=== PATIENT | female | born 2000 | race Two or more races ===

== ENCOUNTER 2023-09-06 00:27 | Emergency (ER) | payer OTHER ==
[~2023-09-06] VITALS: Ht 154.9 cm; Wt 72.6 kg
[2023-09-06 03:16] LABS: HEMATOCRIT 41.4 % (36.0-45.00); HEMOGLOBIN 14.1 g/dL (12.0-15.00); MEAN CELL VOLUME 80.8 fL (80.00-100.00); MEAN CORPUSCULAR HEMOGLOBIN 27.5 pg (27.00-32.0); MEAN CORPUSCULAR HGB CONC 34.1 g/dl (32.0-36.0); PLATELET COUNT 243 K/uL (150-450); RED BLOOD COUNT 5.13 M/uL (4.00-6.00); RED CELL DISTRIBUTION WIDTH 14.8 % (11.5-14.5)
[2023-09-06 03:34] LABS: URINE APPEARANCE Clear; URINE BILIRRUBIN Negative (NEGATIVE); URINE BLOOD Negative; URINE COLOR Yellow; URINE GLUCOSE Negative (NEGATIVE); URINE LEUKOCYTE Trace; URINE NITRATE Negative; URINE PROTEIN Negative (NEGATIVE); URINE UROBILINOGEN 0.2 E.U./dl
[2023-09-06 03:38] LABS: URINE BACTERIA 384.2 uL (0.0-1933); URINE EPITHELIAL CELLS 29.6 uL (0.0-38.8); URINE RBC 3.4 uL (0.0-20.8); URINE WBC 26.4 uL (0.0-23.2)
[2023-09-06 03:49] LABS: CALCIUM 8.8 mg/dL (8.5-10.1); CREATININE SERUM 0.78 mg/dL (0.55-1.02); GFR 92.35; POTASSIUM 4.02 mEq/L (3.5-5.1)
[2023-09-06] MEDS ORDERED: ONDANSETRON ODT4 MG PO (07:36)
[2023-09-06] MEDS ORDERED: PEPCID40 MG PO (07:36)
[2023-09-06] MEDS ORDERED: INTESTINEX680 M2 PO (07:36)
[2023-09-06] MEDS ORDERED: LEVSIN/SL0.125 MG SL (07:36)
== END 2023-09-06 08:09 ==
LOC: ER 00:28
PROVIDERS: General Practice
DX: R19.7 Diarrhea, unspecified (principal); R11.10 Vomiting, unspecified; E86.0 Dehydration

== ENCOUNTER 2023-09-19 18:47 | Emergency (ER) | payer OTHER ==
[~2023-09-19] VITALS: Ht 154.9 cm; Wt 71.7 kg
[~2023-09-19 18:47] MED LIST: INTESTINEX680 M2 PO; LEVSIN/SL0.125 MG SL; ONDANSETRON ODT4 MG PO; PEPCID40 MG PO
[2023-09-19 21:30] LABS: HEMATOCRIT 37.6 % (36.0-45.00); HEMOGLOBIN 12.6 g/dL (12.0-15.00); MEAN CELL VOLUME 78.8 fL (80.00-100.00); MEAN CORPUSCULAR HEMOGLOBIN 26.4 pg (27.00-32.0); MEAN CORPUSCULAR HGB CONC 33.5 g/dl (32.0-36.0); PH,URINE 7.5 (5.0-8.0); PLATELET COUNT 251 K/uL (150-450); RED BLOOD COUNT 4.78 M/uL (4.00-6.00); RED CELL DISTRIBUTION WIDTH 15.2 % (11.5-14.5); URINE APPEARANCE Cloudy; URINE BILIRRUBIN Negative (NEGATIVE); URINE BLOOD NHT; URINE COLOR Yellow; URINE GLUCOSE Negative (NEGATIVE); URINE LEUKOCYTE Small; URINE NITRATE Negative; URINE PROTEIN Trace (NEGATIVE)
[2023-09-19 21:33] LABS: URINE BACTERIA 2194.7 uL (0.0-1933); URINE EPITHELIAL CELLS 3.4 uL (0.0-38.8); URINE RBC 21.1 uL (0.0-20.8); URINE WBC 260.6 uL (0.0-23.2)
[2023-09-19 21:52] LABS: CALCIUM 9.1 mg/dL (8.5-10.1); CREATININE SERUM 0.88 mg/dL (0.55-1.02); GFR 80.35; POTASSIUM 4.57 mEq/L (3.5-5.1)
[2023-09-19] MEDS ORDERED: DUI500 PO (23:38)
== END 2023-09-20 01:46 | disposition home or self-care (01) ==
LOC: ER 18:48
PROVIDERS: Nurse Practitioner Family
DX: R30.0 Dysuria (principal); N39.0 Urinary tract infection, site not specified

== ENCOUNTER 2024-05-04 23:24 | Emergency (ER) | payer OTHER ==
[~2024-05-04] VITALS: Ht 154.9 cm; Wt 77.6 kg
[~2024-05-04 23:24] MED LIST changes: +DUI500 PO
[2024-05-05] MEDS ORDERED: MINERAL OIL 30 ML BLIST.PACK ONE (02:56)
[2024-05-05] MEDS ORDERED: LACTULOSE 20 G/30 ML BLIST.PACK ONE (02:56)
[2024-05-05] MEDS ORDERED: ONDANSETRON 4 MG TAB.RAPDIS PO ONE (02:58)
[2024-05-05] MEDS ORDERED: MAG HYDROX/ALUMINUM HYD/SIMETH 30 ML BLIST.PACK PO ONE (02:59)
[2024-05-05] MEDS ORDERED: ONDANSETRON 4 MG TAB.RAPDIS PO STA (03:05)
[2024-05-05] MEDS ORDERED: MIRALAX510 GM PO (03:50)
== END 2024-05-05 04:26 ==
LOC: ER 23:25
DX: K59.00 Constipation, unspecified (principal)

== ENCOUNTER 2024-07-03 08:57 | Outpatient (CLI) | payer OTHER ==
[~2024-07-03 08:57] MED LIST changes: +MIRALAX510 GM PO
== END 2024-07-03 09:09 | disposition home or self-care (01) ==
LOC: SONOGRAMA 08:57
DX: R22.1 Localized swelling, mass and lump, neck (principal)